=== PATIENT | female | born 1990 | race Caucasian/White ===

== ENCOUNTER 2019-10-03 05:05 | Inpatient (IN) | payer OTHER ==
[~2019-10-03] VITALS: Ht 167.6 cm; Wt 74.0 kg
[2019-10-03] MEDS ORDERED: OXYTOCIN 30U/ 0.9% NaCL 500ML 500 ML IV ONE (05:08)
[2019-10-03] MEDS ORDERED: D5%-LACTATED RINGERS 1,000 ML IV SCH (05:08)
[2019-10-03] MEDS ORDERED: OXYTOCIN 30U/ 0.9% NaCL 500ML 500 ML ONE (05:16)
[2019-10-03] MEDS ORDERED: MISOPROSTOL 200 MCG TABLET ONE (05:16)
[2019-10-03] MEDS ORDERED: NEWBORN KIT ONE (05:16)
[2019-10-03] MEDS ORDERED: PREN-3 PO (05:21)
[2019-10-03 05:22] VITALS: BP 116/67
[2019-10-03] MEDS ORDERED: FENTANYL PF 100 MCG/2ML IV PRN (05:30)
[2019-10-03] MEDS ORDERED: TERBUTALINE 1 MG/ML, 1ML IVPush PRN (05:30)
[2019-10-03] MEDS ORDERED: ONDANSETRON 2MG/ML, 2ML IVPush PRN (05:30)
[2019-10-03] MEDS ORDERED: CALCIUM CARBONATE 500 MG TAB.CHEW PO PRN (05:30)
[2019-10-03] MEDS ORDERED: TERBUTALINE 1 MG/ML, 1ML SQ PRN (05:30)
[2019-10-03] MEDS ORDERED: FENTANYL PF 100 MCG/2ML IVPush PRN (05:30)
[2019-10-03] MEDS ORDERED: PLEASE ENTER ALLERGIES MC SCH (05:30)
[2019-10-03] MEDS: LACTATED RINGERS 1,000 ML IV SCH ×4 (05:36→19:55)
[2019-10-03 05:52] LABS: BASOPHILS # (AUTO) 0.03 x10^3/uL (0-0.1); BASOPHILS % (AUTO) 0 % (0-1); EOSINOPHILS # (AUTO) 0.13 x10^3/uL (0-0.4); EOSINOPHILS % (AUTO) 2 % (1-7); LYMPHOCYTES % (AUTO) 28 % (22-44); MD NO; MEAN CORPUSCULAR HEMOGLOBIN 29.8 pg (27.0-34.8); MEAN CORPUSCULAR HGB CONC 33.4 g/dL (32.4-35.8); MEAN CORPUSCULAR VOLUME 89.4 fL (80-100); MEAN PLATELET VOLUME 8.3 fL (7.4-10.4); MONOCYTES # (AUTO) 0.51 x10^3/uL (0.2-0.8); MONOCYTES % (AUTO) 7 % (2-9); NEUTROPHILS # (AUTO) 4.83 x10^3/uL (1.8-6.8); NEUTROPHILS % (AUTO) 64 % (42-75); PLATELET COUNT 218 x10^3/uL (130-400); RED BLOOD COUNT 4.24 x10^6/uL (3.82-5.3); RED CELL DISTRIBUTION WIDTH 13.3 % (9.6-15.2)
[2019-10-03] MEDS ORDERED: MISOPROSTOL 25 MCG TABLET VG PRN (06:30)
[2019-10-03] MEDS ORDERED: OXYTOCIN 30U/ 0.9% NaCL 500ML 500 ML IV PRN (06:30)
[2019-10-03] MEDS ORDERED: MISOPROSTOL 25 MCG TABLET ONE (06:31)
[2019-10-03] MEDS ORDERED: FENTANYL/BUPIV./NS/PF 250 ML EPIDCONT ONE (11:49)
[2019-10-03] MEDS ORDERED: FENTANYL/BUPIV./NS/PF 250 ML EPIDCONT SCH (12:52)
[2019-10-03] MEDS ORDERED: EPHEDRINE 50 MG/ML, 1ML IVPush PRN (13:00)
[2019-10-03] MEDS ORDERED: LACTATED RINGERS 1,000 ML IVBOLUS PRN (13:00)
[2019-10-03] MEDS ORDERED: NALOXONE 0.4 MG/ML, 1ML IVPush PRN (13:00)
[2019-10-03] MEDS ORDERED: ACETAMINOPHEN 325 MG TABLET ONE (16:11)
[2019-10-03] MEDS ORDERED: ONDANSETRON 2MG/ML, 2ML ONE (21:27)
[2019-10-04] MEDS ORDERED: OXYTOCIN 30U/ 0.9% NaCL 500ML 500 ML ONE (02:08)
[2019-10-04] MEDS: OXYTOCIN 30U/ 0.9% NaCL 500ML 500 ML IV SCH ×2 (02:37→06:45)
[2019-10-04] MEDS ORDERED: IBUPROFEN 600 MG TABLET ONE (02:43)
[2019-10-04] MEDS: IBUPROFEN 600 MG TABLET PO PRN ×3 (02:45→19:24)
[2019-10-04] MEDS ORDERED: METOCLOPRAMIDE 5 MG/ML, 2ML IV PRN (03:00)
[2019-10-04] MEDS ORDERED: CARBOPROST TROMETHAMINE 250 MCG/ML, 1ML IM PRN (03:00)
[2019-10-04] MEDS ORDERED: METHYLERGONOVINE 0.2 MG/ML IM PRN (03:00)
[2019-10-04] MEDS ORDERED: ONDANSETRON 2MG/ML, 2ML IV PRN (03:00)
[2019-10-04] MEDS ORDERED: MISOPROSTOL 200 MCG TABLET PR PRN (03:00)
[2019-10-04] MEDS ORDERED: MEASLES,MUMPS&RUBELLA VACC/PF 0.5 ML SQ-VACC PRN (03:00)
[2019-10-04] MEDS ORDERED: SIMETHICONE 80 MG CHEW TAB PO PRN (03:00)
[2019-10-04] MEDS ORDERED: OXYcodone/APAP 5/325MG TABLET PO PRN (03:00)
[2019-10-04] MEDS ORDERED: OXYcodone/APAP 5/325MG TABLET ONE (03:07)
[2019-10-04] MEDS: OXYcodone/APAP 5/325MG TABLET PO PRN ×4 (03:08→19:25)
[2019-10-04 04:10] VITALS: BP 109/73
[2019-10-04 07:30] VITALS: BP 108/70
[2019-10-04] MEDS: PRENATAL VIT/IRON/FA 1 EACH TABLET PO SCH (09:58)
[2019-10-04] MEDS: DOCUSATE 100 MG CAPSULE PO PRN ×2 (09:58→19:24)
[2019-10-04 11:07] LABS: MEAN CORPUSCULAR HEMOGLOBIN 30.1 pg (27.0-34.8); MEAN CORPUSCULAR HGB CONC 33.8 g/dL (32.4-35.8); MEAN CORPUSCULAR VOLUME 88.9 fL (80-100); MEAN PLATELET VOLUME 8.3 fL (7.4-10.4); PLATELET COUNT 188 x10^3/uL (130-400); RED BLOOD COUNT 3.71 x10^6/uL (3.82-5.3); RED CELL DISTRIBUTION WIDTH 12.9 % (9.6-15.2)
[2019-10-04 11:21] LABS: BASOPHILS # (AUTO) 0.01 x10^3/uL (0-0.1); BASOPHILS % (AUTO) 0 % (0-1); EOSINOPHILS # (AUTO) 0.13 x10^3/uL (0-0.4); EOSINOPHILS % (AUTO) 1 % (1-7); LYMPHOCYTES # (AUTO) 1.55 x10^3/uL (1-3.4); LYMPHOCYTES % (AUTO) 12 % (22-44); MD SCAN; MONOCYTES % (AUTO) 7 % (2-9); NEUTROPHILS # (AUTO) 10.82 x10^3/uL (1.8-6.8); NEUTROPHILS % (AUTO) 81 % (42-75)
[2019-10-04 12:20] VITALS: BP 105/71
[2019-10-04 19:15] VITALS: BP 110/71
[2019-10-05] MEDS: IBUPROFEN 600 MG TABLET PO PRN ×2 (02:04→08:27)
[2019-10-05] MEDS: OXYcodone/APAP 5/325MG TABLET PO PRN (05:44)
[2019-10-05] MEDS: OXYTOCIN 30U/ 0.9% NaCL 500ML 500 ML IV SCH (06:49)
[2019-10-05 07:32] VITALS: BP 115/77
[2019-10-05] MEDS: PRENATAL VIT/IRON/FA 1 EACH TABLET PO SCH (08:27)
[2019-10-05] MEDS: DOCUSATE 100 MG CAPSULE PO PRN (08:27)
== END 2019-10-05 13:19 | disposition home or self-care (01) | DRG 807 ==
LOC: LDIP 05:05 → 2NW 10-04 03:45
PROVIDERS: ADMIT Obstetrics & Gynecology; ATTEND Obstetrics & Gynecology
PROC: 10E0XZZ Delivery of Products of Conception, External Approach (ICD-10-PCS; principal; 2019-10-04)
PROC: 0KQM0ZZ Repair Perineum Muscle, Open Approach (ICD-10-PCS; 2019-10-04)
PROC: 10907ZC Drainage of Amniotic Fluid, Therapeutic from Products of Conception, Via Natural or Artificial Opening (ICD-10-PCS; 2019-10-04)
PROC: 3E0R3BZ Introduction of Anesthetic Agent into Spinal Canal, Percutaneous Approach (ICD-10-PCS; 2019-10-04)
PROC: 00HU33Z Insertion of Infusion Device into Spinal Canal, Percutaneous Approach (ICD-10-PCS; 2019-10-04)
DX: O99.354 Diseases of the nervous system complicating childbirth (principal); Z37.0 Single live birth; O70.1 Second degree perineal laceration during delivery; Z3A.39 39 weeks gestation of pregnancy; Z82.3 Family history of stroke; Z82.49 Family history of ischemic heart disease and other diseases of the circulatory system; Z83.3 Family history of diabetes mellitus; G43.909 Migraine, unspecified, not intractable, without status migrainosus
CPT/HCPCS: 36415; J7121; 76815; 82803; 85025; 86592; 86850; 86870; 86900; 86923; G0378; J2405; J2590; J3010; J7120

== ENCOUNTER → 2020-03-28 | Outpatient (CLI) | payer OTHER ==
[~2020-03-28] MED LIST: PREN-3 PO
== END | disposition home or self-care (01) ==
LOC: LAB 08:01
PROVIDERS: ATTEND Obstetrics & Gynecology
DX: Z30.9 Encounter for contraceptive management, unspecified (principal)
CPT/HCPCS: 36415; 84702